=== PATIENT | female | born 1985 | race Caucasian/White ===

== ENCOUNTER 2018-03-06 22:22 | Emergency (ER) | payer OTHER ==
[2018-03-06 23:46] LABS: ADD MAN DIFF? NO
[2018-03-06 23:48] LABS: BASOPHIL # 0.1 10^3/ul (0.0-0.1); BASOPHILS % 0.8 % (0.0-2.0); EOSINOPHILS # 0.2 10^3/ul (0.0-0.5); EOSINOPHILS % 2.3 % (0.0-7.0); HEMATOCRIT 40.2 % (37.0-47.0); HEMOGLOBIN 13.7 g/dl (12.0-16.0); LYMPHOCYTES # 3.3 10^3/ul (0.8-2.9); LYMPHOCYTES % 35.3 % (15.0-51.0); MEAN CORPUSCULAR HEMOGLOBIN 30.2 pg (29.0-33.0); MEAN CORPUSCULAR HGB CONC 34.1 g/dl (32.0-37.0); MEAN CORPUSCULAR VOLUME 88.5 fl (82.0-101.0); MONOCYTE # 0.5 10^3/ul (0.3-0.9); MONOCYTES % 5.8 % (0.0-11.0); NEUTROPHIL # 5.1 10^3/ul (1.6-7.5); NEUTROPHILS % 55.5 % (39.0-77.0); PLATELET COUNT 275 10^3/UL (140-415); RED BLOOD COUNT 4.54 10^6/ul (4.20-5.40); RED CELL DISTRIBUTION WIDTH 12.1 % (11.5-14.5)
[2018-03-06 23:48] LABS: WHITE BLOOD COUNT 9.2 10^3/ul (4.8-10.8)
[2018-03-07 00:06] LABS: ALANINE AMINOTRANSFERASE 88 IU/L (13-69); ALBUMIN 4.7 g/dl (3.3-4.9); ALKALINE PHOSPHATASE 80 IU/L (42-121); ANION GAP 12 (5-13); ASPARTATE AMINO TRANSFERASE 43 IU/L (15-46); BILIRUBIN,INDIRECT 0.2 mg/dl (0-1.1); BILIRUBIN,TOTAL 0.2 mg/dl (0.2-1.3); BLOOD UREA NITROGEN 12 mg/dl (7-20); CALCIUM 9.5 mg/dl (8.4-10.2); CARBON DIOXIDE 25 mmol/L (21-31); CHLORIDE 101 mmol/L (97-110); CREATININE 0.59 mg/dl (0.44-1.00); Estimated GFR > 60 mL/min (>60); GLUCOSE 104 mg/dl (70-220); POTASSIUM 3.7 mmol/L (3.5-5.1); SODIUM 138 mmol/L (135-144); TOTAL PROTEIN 8.3 g/dl (6.1-8.1)
== END 2018-03-07 01:56 | disposition left against medical advice (07) ==
LOC: FTE 22:22
DX: R20.0 Anesthesia of skin (principal)
CPT/HCPCS: 80053; 85025; 99283

== ENCOUNTER 2018-10-07 22:29 | Emergency (ER) | payer OTHER ==
[2018-10-07] MEDS: ALBUTEROL 0.083% (NEB) 2.5 MG/3 ML AMP HHN (23:37)
[2018-10-07] MEDS: IPRATROPIUM (NEB) 0.5 MG/2.5 ML AMP HHN (23:37)
[2018-10-07] MEDS: predniSONE 20 MG TAB PO (23:50)
[2018-10-07] MEDS: ACETAMINOPHEN 325 MG TAB PO (23:50)
== END 2018-10-08 00:16 | disposition home or self-care (01) ==
LOC: FTE 22:29
DX: J45.901 Unspecified asthma with (acute) exacerbation (principal); J32.9 Chronic sinusitis, unspecified; R05 Cough
CPT/HCPCS: 93005; 94664; 99283-25